=== PATIENT | male | born 1960 | race Caucasian/White ===

== ENCOUNTER 2023-05-19 06:37 | Inpatient (IN) | payer OTHER, SELFPAY ==
[2023-05-09 14:20] VITALS: BMI 29.9
[2023-05-09 15:58] LABS: APTT 35.3 Sec (23.4-35.0); INR 1.01; PT 13.6 Sec (11.4-14.6)
[2023-05-19] VITALS (13 sets, daily range): BP systolic 119–166; BP diastolic 74–99; BMI 29.9
[2023-05-19] MEDS: NORMOSOL-R 1000 IV (08:22)
[2023-05-19] MEDS: DILAUDID 0.5 MG IV ×2 (17:49→18:09)
[2023-05-19] MEDS: LR 1000 IV (18:10)
--- NOTE | 2023-05-19 18:25 | SUR.PHASEI ---
Received report from Margaret Vogt RN and assumed care of pt.
[2023-05-19] MEDS: ZOFRAN 4 MG IV (18:38)
[2023-05-19] MEDS: COMPAZINE 5 MG IV (18:45)
[2023-05-19 18:46] LABS: Hematocrit 42.5 % (39.0-52.0); Hemoglobin 15.6 g/dL (13.0-18.0)
[2023-05-19 18:58] LABS: Blood Urea Nitrogen 17 mg/dl (9-20); Calcium 8.6 mg/dl (8.4-10.2); Carbon Dioxide 22 mmol/L (22-30); Chloride 105 mmol/L (98-107); Estimated Creatinine Clearance 99 ml/min; Glucose 132 mg/dl (70-99); Potassium 4.3 mmol/L (3.5-5.1); Sodium 137 mmol/L (135-145); eGFR > 60.00
[2023-05-19] MEDS: SENOKOT 8.59999999999999964 MG PO (20:29)
--- NOTE | 2023-05-20 00:03 | PTCARENOTE ---
Pt placed on telemetry due to irregular apical pulse on assessment and when getting vitals, the dinomap showed a variable HR from 45-115. EKG obtained, showing sinus arrhythmia with PAC's, notified GALLERY DIRECTOR. EKG prior to surgery NSR and per pt NSR in
office recenetly. Order placed to place pt on tele. Patient informed and discussed why. no questions at this time. Will continue to monitor.
[2023-05-20 03:00] VITALS: BP 133/86
[2023-05-20 05:32] LABS: Hematocrit 41.3 % (39.0-52.0); Hemoglobin 14.9 g/dL (13.0-18.0); Mean Corp Hgb Conc. 36.1 g/dL (33.0-37.0); Mean Corpuscular Hgb 31.9 pg (27.0-31.0); Mean Corpuscular Volume 88.4 fL (80.0-94.0); Mean Platelet Volume 11.1 fL (7.4-10.4); Platelet Count 169 10^3/uL (130-400); Red Blood Cell Count 4.67 10^6/uL (4.70-6.10); White Blood Cell Count 14.3 10^3/uL (4.8-10.8)
[2023-05-20 06:11] LABS: Blood Urea Nitrogen 18 mg/dl (9-20); Calcium 8.6 mg/dl (8.4-10.2); Carbon Dioxide 23 mmol/L (22-30); Chloride 103 mmol/L (98-107); Estimated Creatinine Clearance 88 ml/min; Glucose 129 mg/dl (70-99); Potassium 4.6 mmol/L (3.5-5.1); Sodium 137 mmol/L (135-145); eGFR > 60.00
[2023-05-20 06:54] LABS: Hepatitis C Antibody Negative (Negative)
[2023-05-20 07:46] VITALS: BP 138/89
--- NOTE | 2023-05-20 08:21 | W.PN.URO.CBU ---
Today's Communication / Plan
-
Discharge
Assessment / Plan
-
62M POD 1 s/p L partial nephrectomy
- Regular diet, gonzalez out
- OOB/ambulate
- PO pain meds - tylenol/ibuprofen patient preference
- Telemetry ordered post op due to PACs in PACU - telemetry showed normal sinus rhythm. Some PACs present on preop EKG. Routine outpatient cardiology follow up is already scheduled in next few weeks
- Discharge home
Diagnosis
-
Date of Service: May 20, 2023
-
Patient Diagnosis: L renal mass
Post Op Day: 1 s/p partial nephrectomy
Subjective
-
feeling well, minimal pain
No chest pain, shortness of breath, dizziness, or nausea
tolerated liquids
Objective
-
Vital Signs
Temp Pulse Resp BP Pulse Ox
97.8 F 77 19 138/89 94
05/20/23 07:46 05/20/23 07:46 05/20/23 07:46 05/20/23 07:46 05/20/23 07:46
Intake and Output
05/19/23 05/20/23 05/21/23
06:59 06:59 06:59
Intake Total 340 / 340
Output Total 875 / 875
Balance -535 / -535
Intake:
Oral fluids 240 / 240
IV fluids (Total) 100 / 100
normosol 100 / 100
Output:
Urine, Gonzalez 875 / 875
Laboratory Results
05/20/23 05:19
05/20/23 05:19
Physical Exam
-
General - well developed, well nourished, no acute distress
Chest - clear bilaterally
Abdomen - soft, non-tender, positive bowel sounds, no CVAT, no incisional pain or distention
Genitalia - normal
Skin - warm & dry with no rash
Neuro - AOx3, no motor deficits
Extremities - no clubbing, no cyanosis, no edema
Incision - clean, dry
Dressing - clean, dry, intact
[2023-05-20] MEDS: CRESTOR 20 MG PO (09:19)
[2023-05-20] MEDS: PROTONIX 40 MG PO (09:19)
[2023-05-20] MEDS: ASPIR LOW (ENTERIC COATED) 81 MG PO (09:19)
[2023-05-20] MEDS: SENOKOT 8.59999999999999964 MG PO (09:20)
[2023-05-20] MEDS: ZESTRIL 10 MG PO (09:20)
[2023-05-20] MEDS: TYLENOL 650 MG PO ×2 (09:22→14:16)
[2023-05-20 11:21] VITALS: BP 131/90
--- NOTE | 2023-05-20 11:37 | CM ---
Chart reviewed. Spoke with pt and
Pt lives in one story home with loft with
Independent, working, drives
Denies past VNA/SNF. No DME
PCP - Dr Cano
[facility]
Plan - Anticipate home to previous setting - no needs.
== END 2023-05-20 14:52 | disposition home or self-care (01) | DRG 658 ==
LOC: 2 SOUTH 06:37
PROVIDERS: ADMITTING PHYSICIAN Urology; FAMILY PHYSICIAN Family Medicine
PROC: 8E0W4CZ Robotic Assisted Procedure of Trunk Region, Percutaneous Endoscopic Approach (ICD-10-PCS; 2023-05-19)
PROC: 0TB14ZZ Excision of Left Kidney, Percutaneous Endoscopic Approach (ICD-10-PCS; 2023-05-19)
DX: C64.2 Malignant neoplasm of left kidney, except renal pelvis (principal); K58.9 Irritable bowel syndrome, unspecified; K21.9 Gastro-esophageal reflux disease without esophagitis; E78.2 Mixed hyperlipidemia; I34.1 Nonrheumatic mitral (valve) prolapse; I10 Essential (primary) hypertension; F41.9 Anxiety disorder, unspecified; Z79.82 Long term (current) use of aspirin; Z80.52 Family history of malignant neoplasm of bladder
CPT/HCPCS: 88307; 36415; 80048; 85014; 85018; 85027; 85610; 85730; 86803; 86850; 86900; 86901; 86920; 88341; 88342; 93005

== ENCOUNTER → 2023-08-26 08:04 | Outpatient (REF) | payer OTHER, SELFPAY | LOC: RAD 08:04 | PROVIDERS: ATTENDING PHYSICIAN Family Medicine | DX: R22.1 Localized swelling, mass and lump, neck (principal) | CPT/HCPCS: 76536 ==

== ENCOUNTER → 2023-11-01 06:30 | Outpatient (REF) | payer OTHER, SELFPAY ==
[2023-11-01 09:41] LABS: ALT (SGPT) 39 U/L (0-50); AST (SGOT) 32 U/L (17-59); Albumin 4.4 g/dl (3.5-5.0); Alkaline Phosphatase 95 U/L (38-126); Blood Urea Nitrogen 19 mg/dl (9-20); Calcium 9.3 mg/dl (8.4-10.2); Carbon Dioxide 27 mmol/L (22-30); Chloride 106 mmol/L (98-107); Glucose 102 mg/dl (70-99); Potassium 4.6 mmol/L (3.5-5.1); Sodium 139 mmol/L (135-145); Total Bilirubin 0.9 mg/dl (0.2-1.3); Total Protein 6.6 g/dl (6.3-8.2); eGFR > 60.00
[2023-11-01 10:13] LABS: Cortisol, Random 11.8 ug/dl
[2023-11-02 15:06] LABS: Adrenocorticotropic Hormone 4.8 pg/mL (7.2-63.3)
[2023-11-04 02:47] LABS: 24 Hour Urine Total Volume Random mL; Creatinine, Urine per Volume 167 mg/dL; Metanephrine, Urine 99 ug/L; Metanephrine/Creatinine Ratio 59 ug/g CRT (0-300); Normetanephrine, Urine 200 ug/L; Normetanephrine/Creatinine Rat 120 ug/g CRT (0-400); Urine Collection Length Random hr
== END ==
LOC: RAD 06:30
PROVIDERS: ATTENDING PHYSICIAN Internal Medicine Endocrinology, Diabetes & Metabolism; FAMILY PHYSICIAN Family Medicine
DX: E27.8 Other specified disorders of adrenal gland (principal)
CPT/HCPCS: 36415; 74150; 80053; 82024; 82088; 82533; 83835; 84244

== ENCOUNTER → 2023-11-03 13:00 | Outpatient (REF) | payer OTHER, SELFPAY | LOC: REG 13:00 | PROVIDERS: ATTENDING PHYSICIAN Internal Medicine Endocrinology, Diabetes & Metabolism; FAMILY PHYSICIAN Family Medicine | DX: E27.8 Other specified disorders of adrenal gland (principal) | CPT/HCPCS: 81050; 82530 ==

== ENCOUNTER → 2024-06-29 11:56 | Outpatient (REF) | payer OTHER, SELFPAY | LOC: RAD 11:56 | PROVIDERS: ATTENDING PHYSICIAN Family Medicine | DX: I72.8 Aneurysm of other specified arteries (principal) | CPT/HCPCS: 74174; Q9967 ==